=== PATIENT | male | born 1980 | race Caucasian/White ===

== ENCOUNTER 2021-11-06 11:39 | Emergency (ER) | payer OTHER ==
[~2021-11-06 11:39] MED LIST: ABILIFY10 MG PO; CLEOCIN300 MG PO; MOTRIN600 MG PO; PHENERGAN25 M1 PO; PREDNISONE 10MG10 MG PO; REMERON15 MG PO; RISPERDAL 1MG TA1 MG PO
== END 2021-11-06 13:16 | disposition home or self-care (01) ==
LOC: FER 11:39
DX: S50.02XA Contusion of left elbow, initial encounter (principal); F17.210 Nicotine dependence, cigarettes, uncomplicated; Z88.0 Allergy status to penicillin; W19.XXXA Unspecified fall, initial encounter; Y93.E9 Activity, other interior property and clothing maintenance
CPT/HCPCS: 73080